=== PATIENT | female | born 1970 | race Caucasian/White ===

== ENCOUNTER 2017-01-03 22:10 | Emergency (ER) | payer OTHER ==
[2017-01-03 22:20] VITALS: BP 139/79; PULSE 66; RESP 18; TEMP 98.7; O2SAT 99
--- NOTE | 2017-01-03 23:46 | ED PDOC ---
HPI: Chest Pain Time Seen by Provider: 01/03/17 23:12 Chief Complaint (Nursing): Back Pain Chief Complaint (Provider): Chest Pain History Per: Patient History/Exam Limitations: no limitations Onset/Duration Of Symptoms: Days (x2 days) Current Symptoms Are (Timing): Still Present Associated Symptoms: Dyspnea (Dyspnea on exertion) Additional Complaint(s): Ashlie Mcintyre, a 46 year old female, with a past medical history of pulmonary embolism presents to the the ED with intermittent substernal chest pain that radiates to her back. The patient states that she took excedrin earlier that offered some relief but the pain keeps recurring. She also notes some shortness of breath and and dyspnea on exertion. The patient reports that in 2002 she had a pulmonary embolism after having a tubal ligation and a , at this time she was on coumadin for 9 months and then was taken off. Denies cough, fever, leg swelling, recent immobilization or leg swelling. PMD: [facility] - Risk Factors PE Risk Factors: Pos: Previous PE Past Medical History Reviewed: Historical Data, Nursing Documentation, Vital Signs Vital Signs: Last Vital Signs Temp 98.7 F 01/03/17 22:16 Pulse 66 01/03/17 22:16 Resp 18 01/03/17 22:16 BP 139/79 01/03/17 22:16 Pulse Ox 99 01/04/17 06:11 - Medical History PMH: GERD, Pulmonary Embolism Denies: Chronic Kidney Disease - Surgical History Surgical History: Cholecystectomy, (x 3) Other surgeries: Tubal Ligation - Family History Family History: States: Diabetes, Hypertension - Social History Current smoker - smoking cessation education provided: No Ex-Smoker (has not smoked in the last 12 months): No Alcohol: Occasional Drugs: Denies - Home Medications Home Medications: Ambulatory Orders Medication Instructions Recorded oxyCODONE/Acetaminophen [Percocet 1 tab PO Q4 PRN #20 tab 10/10/14 5/325 mg Tab] Dicyclomine [Bentyl] 20 mg PO Q6 PRN #12 tab 05/23/15 Ondansetron HCl [Zofran] 8 mg PO Q8 PRN #10 tab 05/23/15 Ofloxacin Ophth 0.3% [Ocuflox 1 drop RIGHTEYE Q6H #1 bottle 06/28/15 Ophth 0.3%] Promethazine DM 10 ml PO Q8H PRN #120 ml 11/08/15 [Dextromethorphan/Promethazine 15 MG/5 Ml-6.25] Cyclobenzaprine [Cyclobenzaprine 10 mg PO BID #15 tab 01/04/17 HCl] - Allergies Allergies/Adverse Reactions: Allergies Allergy/AdvReac Type Severity Reaction Status Date / Time No Known Allergies Allergy Verified 07/21/14 11:40 Review of Systems Constitutional: Negative for: Fever Cardiovascular: Positive for: Chest Pain, Other (Dyspnea on exertion) Respiratory: Positive for: Shortness of Breath. Negative for: Cough Musculoskeletal: Positive for: Other (Denies leg swelling) Physical Exam - Reviewed Nursing Documentation Reviewed: Yes Vital Signs Reviewed: Yes - Physical Exam Appears: Positive for: Non-toxic. Negative for: No Acute Distress (Mild painful distress) Skin: Positive for: Normal Color, Warm, Dry Eye Exam: Positive for: Normal appearance, EOMI, PERRL ENT: Positive for: Normal ENT Inspection Neck: Positive for: Normal, Painless ROM, Supple Cardiovascular/Chest: Positive for: Regular Rate, Rhythm, Chest Non Tender. Negative for: Tachycardia Respiratory: Positive for: Normal Breath Sounds. Negative for: Wheezing, Respiratory Distress Gastrointestinal/Abdominal: Positive for: Normal Exam, Bowel Sounds, Soft. Negative for: Tenderness, Guarding, Rebound Back: Positive for: Normal Inspection Extremity: Positive for: Normal ROM. Negative for: Tenderness, Pedal Edema, Deformity, Swelling Neurologic/Psych: Positive for: Alert, Oriented, Gait - Laboratory Results Result Diagrams: 01/03/17 23:45 01/03/17 23:45 - ECG O2 Sat by Pulse Oximetry: 99 (RA) Pulse Ox Interpretation: Normal Medical Decision Making Medical Decision Makin Initial Impression: 46 year old female presenting with substernal chest pain and shortness of breath Differential: Pulmonary Embolism vs Costochondritis vs Pnuemonia vs Plueral Effusion vs Anxiety Initial Plan: * Type and Screen * CT Angio Chest PE Protocol * EKG * B-type Natriuretic * Comp Metabolic Panel * Magnesium * Phosphorous * Thyroid Stimulant * Troponin * Upreg * Udip * CBC * Partial Thromboplastin * Prothrombin time * CXR * Reevaluation Scribe Attestation Documented by Belgica Amor acting as a scribe for Marta Vazquez MD. Provider Attestation All medical record entries made by the Scribe were at my direction and personally dictated by me. I have reviewed the chart and agree that the record accurately reflects my personal performance of the history, physical exam, medical decision making, and the department course for this patient. I have also personally directed, reviewed, and agree with the discharge instructions and disposition. Disposition - Clinical Impression Clinical Impression: Back pain - Disposition Disposition: Transfer of Care Disposition Time: 00:00 Condition: STABLE Prescriptions: Cyclobenzaprine [Cyclobenzaprine HCl] 10 mg PO BID #15 tab Patient Signed Over To: Elie Ruth Handoff Comments: Pending ER workup, reassessment and final ER disposition
[2017-01-04 00:27] LABS: BASO # 0.1 K/uL (0.0-0.2); BASO % 0.8 % (0.0-2.0); EOS # 0.2 K/uL (0.0-0.7); EOS % 2.5 % (0.0-4.0); HEMOGLOBIN 12.4 g/dL (12.0-16.0); LYMPH # 2.1 K/uL (1.0-4.3); LYMPH % 31.1 % (20.0-40.0); MEAN CELL VOLUME 85.2 fl (81.0-99.0); MEAN CORPUSCULAR HEMOGLOBIN 27.7 pg (27.0-31.0); MEAN CORPUSCULAR HGB CONC 32.5 g/dL (33.0-37.0); MEAN PLATELET VOLUME 8.9 fl (7.2-11.7); MONO # 0.4 K/uL (0.0-0.8); MONO % 5.9 % (0.0-10.0); NEUT # 4.1 K/uL (1.8-7.0); NEUT % 59.7 % (50.0-75.0); RBC 4.49 Mil/uL (3.80-5.20); RED CELL DISTRIBUTION WIDTH 13.8 % (11.5-14.5); WHITE BLOOD COUNT 6.9 K/uL (4.8-10.8)
[2017-01-04 00:37] LABS: ALB/GLOB RATIO 1.4 (1.0-2.1); ALBUMIN 4.5 g/dL (3.5-5.0); ALT/SGPT 36 U/L (9-52); AST/SGOT 26 U/L (14-36); BLOOD UREA NITROGEN 13 mg/dl (7-17); CALCIUM 9.5 mg/dL (8.4-10.2); GFR AFRICAN-AMERICAN > 60; GFR NON-AFRICAN AMERICAN > 60; MAGNESIUM 2.1 MG/DL (1.6-2.3)
[2017-01-04 00:44] LABS: PROTHROMBIN TIME 11.4 Seconds (9.8-13.1)
[2017-01-04 00:46] LABS: B-TYPE NATRIURETIC PEPTIDE 16.1 pg/ml (0-450)
[2017-01-04] MEDS ORDERED: Iohexol 300 100 ML IJ ONE (01:14)
[2017-01-04] MEDS ORDERED: Sodium Chloride 0.9% 50 ML IV ONE (01:14)
--- NOTE | 2017-01-04 03:18 | ED PDOC ---
- Laboratory Results Result Diagrams: 01/03/17 23:45 01/03/17 23:45 - ECG O2 Sat by Pulse Oximetry: 99 (RA) Pulse Ox Interpretation: Normal Medical Decision Making Medical Decision Making: Patient signed out to provider from Dr. Vazquez at [address] report. 01:49 CT Angiography Chest With Intravenous Contrast IMPRESSION: No pulmonary embolism. The lungs are clear. Pt. informed of results, feeling better. Return precautions given, advised to followup with PMD in 1-2 days. Scribe Attestation Documented by Belgica Amor acting as a scribe for Elie Ruth MD. Provider Attestation All medical record entries made by the Scribe were at my direction and personally dictated by me. I have reviewed the chart and agree that the record accurately reflects my personal performance of the history, physical exam, medical decision making, and the department course for this patient. I have also personally directed, reviewed, and agree with the discharge instructions and disposition. Disposition - Clinical Impression Clinical Impression: Back pain - POA Present On Arrival: None - Disposition Referrals: [facility] [Outside] Disposition: Routine/Home Disposition Time: 03:00 Condition: STABLE Prescriptions: Cyclobenzaprine [Cyclobenzaprine HCl] 10 mg PO BID #15 tab Instructions: Back Pain (ED)
--- NOTE | 2017-01-04 07:27 | CARD ---
APPROVED REPORT EKG Measurement Heart [id number] <Conclusion> Normal sinus rhythm with sinus arrhythmia Normal ECG
--- NOTE | 2017-01-04 08:15 | CT ---
PROCEDURE: CT Chest with contrast (Pulmonary Angiogram) HISTORY: chest pain h/o PE COMPARISON: None available. TECHNIQUE: Axial computed tomography images were obtained of the chest in the pulmonary arterial phase of enhancement. Coronal and sagittal reformatted images were created and reviewed. Maximum intensity projection (MIP) reconstructed images in the following planes: Axial projection only Intravenous contrast dose: 95 cc Omnipaque 300. Mean Hounsfield unit values in the main pulmonary artery: 404.26 Radiation dose: Total exam DLP = 423.03 mGy-cm. This CT exam was performed using one or more of the following dose reduction techniques: Automated exposure control, adjustment of the mA and/or kV according to patient size, and/or use of iterative reconstruction technique. FINDINGS: PULMONARY ARTERIES: Unremarkable. No pulmonary embolism. AORTA: No acute findings. No thoracic aortic aneurysm. LUNGS: Unremarkable. No nodule, mass or pulmonary consolidation. PLEURAL SPACES: Unremarkable. No effusion or pneuomothorax. HEART: Unremarkable. No cardiomegaly. No significant pericardial effusion. LYMPH NODES: No lymphadenopathy. BONES, CHEST WALL: Unremarkable. No fracture or destructive lesion OTHER FINDINGS: Unremarkable. IMPRESSION: Unremarkable CT pulmonary angiogram. No pulmonary embolus. Concordant results (preliminary interpretation) provided by [email or web address]. Procedure Completed: :23 Preliminary ([facility]) Report: Dictated and Authenticated: 01:49 Final Interpretation: 08:13
--- NOTE | 2017-01-04 12:28 | RAD ---
HISTORY: chest pain COMPARISON: 12/03/2011 TECHNIQUE: Chest PA and lateral FINDINGS: LUNGS: No active pulmonary disease. PLEURA: No significant pleural effusion identified. No pneumothorax apparent. CARDIOVASCULAR: Normal. OSSEOUS STRUCTURES: No significant abnormalities. VISUALIZED UPPER ABDOMEN: Normal. OTHER FINDINGS: None. IMPRESSION: No active disease. No significant interval change compared to the prior examination(s).
== END 2017-01-04 04:08 | disposition home or self-care (01) ==
LOC: H.ER 22:10
DX: M54.9 Dorsalgia, unspecified (principal); K21.9 Gastro-esophageal reflux disease without esophagitis; Z86.711 Personal history of pulmonary embolism

== ENCOUNTER 2018-06-23 22:39 | Emergency (ER) | payer SELFPAY ==
[2018-06-23 22:47] VITALS: O2SAT 99
--- NOTE | 2018-06-23 23:25 | ED PDOC ---
HPI: Chest Pain <Mandie Hernandez - Last Filed: 06/24/18 03:06> Additional Complaint(s): 48 yo female with PMHx pulmonary embolism 15 years ago (tx with AC) presents with substernal chest pain (10/10 at times) that radiates to back x 4 days, progressively getting worse, associated with shortness of breath with deep breathing and walking. Patient reports shortness of breath is better with leaning forward. Patient reports non productive cough started today. Patient took BC power (aspirin x 2) today. Denies any nausea, vomiting, palpitation, headache, focal weakness, fever or chills. Denies any family hx CAD. Denies any recent plane trip. Patient is a non-smoker. PMD: NONE <Sultan Gibson - Last Filed: 06/24/18 03:42> Time Seen by Provider: 06/23/18 23:09 Chief Complaint (Nursing): Chest Pain Past Medical History Vital Signs: Last Vital Signs Temp 98 F 06/24/18 02:56 Pulse 62 06/24/18 02:56 Resp 18 06/24/18 02:56 BP 118/57 L 06/24/18 02:56 Pulse Ox 99 06/24/18 03:06 <Mandie Hernandez - Last Filed: 06/24/18 03:06> Vital Signs: Last Vital Signs Temp 97.7 F 06/23/18 22:42 Pulse 81 06/23/18 22:42 Resp 20 06/23/18 22:42 BP 111/76 06/23/18 22:42 Pulse Ox 99 06/23/18 22:42 - Medical History PMH: GERD, Pulmonary Embolism Denies: Chronic Kidney Disease - Surgical History Surgical History: Cholecystectomy, (x 3) - Family History Family History: States: Unknown Family Hx, Diabetes, Hypertension <Sultan Gibson - Last Filed: 06/24/18 03:42> - Home Medications Home Medications: Ambulatory Orders Medication Instructions Recorded RX: oxyCODONE/Acetaminophen 1 tab PO Q4 PRN #20 tab 10/10/14 [Percocet 5/325 mg Tab] Dicyclomine [Bentyl] 20 mg PO Q6 PRN #12 tab 05/23/15 Ondansetron HCl [Zofran] 8 mg PO Q8 PRN #10 tab 05/23/15 Ofloxacin Ophth 0.3% [Ocuflox 1 drop RIGHTEYE Q6H #1 bottle 06/28/15 Ophth 0.3%] Promethazine DM 10 ml PO Q8H PRN #120 ml 11/08/15 [Dextromethorphan/Promethazine 15 MG/5 Ml-6.25] Cyclobenzaprine [Cyclobenzaprine 10 mg PO BID #15 tab 01/04/17 HCl] - Allergies Allergies/Adverse Reactions: Allergies Allergy/AdvReac Type Severity Reaction Status Date / Time No Known Allergies Allergy Verified 06/23/18 22:42 Review of Systems ROS Statement: Except As Marked, All Systems Reviewed And Found Negative Constitutional: Negative for: Fever, Chills Cardiovascular: Positive for: Chest Pain. Negative for: Palpitations Respiratory: Positive for: Cough, Shortness of Breath. Negative for: Hemoptysis, Wheezing Gastrointestinal: Negative for: Nausea, Vomiting Genitourinary Female: Negative for: Dysuria Skin: Negative for: Rash Neurological: Negative for: Weakness, Numbness, Confusion, Altered Mental Status <Sultan Gibson - Last Filed: 06/24/18 03:42> Physical Exam - Physical Exam Appears: Positive for: Non-toxic, No Acute Distress Head Exam: Positive for: ATRAUMATIC, NORMOCEPHALIC Skin: Negative for: Diaphoresis Eye Exam: Positive for: Normal appearance Neck: Positive for: Normal Cardiovascular/Chest: Positive for: Regular Rate, Rhythm. Negative for: Murmur Respiratory: Positive for: Normal Breath Sounds. Negative for: Crackles, Rales, Rhonchi, Wheezing, Respiratory Distress Gastrointestinal/Abdominal: Positive for: Soft. Negative for: Tenderness, Guarding, Rebound Extremity: Positive for: Capillary Refill. Negative for: Calf Tenderness, Swelling Neurologic/Psych: Positive for: Alert, Oriented <Sultan Gibson - Last Filed: 06/24/18 03:42> - Laboratory Results Result Diagrams: 06/23/18 23:43 06/23/18 23:43 <Mandie Hernandez - Last Filed: 06/24/18 03:06> - Laboratory Results Result Diagrams: 06/23/18 23:43 06/23/18 23:43 - ECG O2 Sat by Pulse Oximetry: 99 - Progress ED Course And Treament: Time 23:10 48 yo female PMHx PE treated with AC presents w/ complaints of chest pain and dyspnea x 4 days. PLAN: EKG CXR CT CHEST (PE PROTOCOL) Troponin I CMP CBC MG PHOS PRO BNP PT/INR INFLUENZA Re-evaluate Time: 2:40 Labs reviewed: all labs unremarkable including troponin I and proBNP. EKG NSR, no ST/T wave changes (pending official read) CXR shows active no cardiopulmonary disease (pending official read) CTA is unremarkable, no evidence of PE. reevaluated at 2:40 am, patient reports her chest pain resolved. Patient not in acute distress and repeat vitals stable Patient is medically stable to discharge home with advised to f/u with a airplane first officer within 1 week and [facility] clinic for PMD Advised to return to ER if chest pain or shortness of breath returns Plan d/w Dr. Hernandez Re-evaluation Time: 02:40 Condition: Re-examined, Improved <Sultan Gibson - Last Filed: 06/24/18 03:42> Medical Decision Making Medical Decision Making: Patient seen and evaluated at bedside with resident, including HPI and exam. Agree with assessment, plan and discharge. <Mandie Hernandez - Last Filed: 06/24/18 03:06> Disposition <Mandie Hernandez - Last Filed: 06/24/18 03:06> <Sultan Gibson - Last Filed: 06/24/18 03:42> - Clinical Impression Clinical Impression: Acute chest pain - Disposition Referrals: [facility] [Outside] Additional Instructions: Contact the [facility] clinic on the referral to schedule an appointment for follow up. Return to the emergency department if symptoms return or you develop chest pain, difficulty breathing, or other new symptoms. Instructions: Chest Pain (DC), Heart Disease in Women (DC) Forms: [employer] (Nauruan) Print Language: BAHAMIAN
[2018-06-24 00:32] LABS: BASO % 0.5 % (0.0-2.0); EOS # 0.2 K/uL (0.0-0.7); EOS % 3.4 % (0.0-4.0); HEMOGLOBIN 12.2 g/dL (12.0-16.0); LYMPH % 34.4 % (20.0-40.0); MEAN CORPUSCULAR HGB CONC 32.9 g/dL (33.0-37.0); MEAN PLATELET VOLUME 8.9 fl (7.2-11.7); MONO # 0.3 K/uL (0.0-0.8); MONO % 5.5 % (0.0-10.0); NEUT # 3.2 K/uL (1.8-7.0); NEUT % 56.2 % (50.0-75.0); NRBC % 0.1 % (0.0-0.0); RBC 4.37 Mil/uL (3.80-5.20); WHITE BLOOD COUNT 5.7 K/uL (4.8-10.8)
[2018-06-24] MEDS ORDERED: Sodium Chloride 0.9% 50 ML IV ONE (00:35)
[2018-06-24] MEDS ORDERED: Iodixanol 320 MG/ML 100 ML BOTTLE IV ONE (00:35)
[2018-06-24 00:36] LABS: PROTHROMBIN TIME 11.4 Seconds (9.8-13.1)
[2018-06-24 00:39] LABS: PARTIAL THROMBOPLASTIN TIME 36.5 Seconds (25.6-37.1)
[2018-06-24 00:48] LABS: ALB/GLOB RATIO 1.3 (1.0-2.1); ALBUMIN 4.2 g/dL (3.5-5.0); ALT/SGPT 23 U/L (9-52); AST/SGOT 22 U/L (14-36); BLOOD UREA NITROGEN 11 mg/dl (7-17); CALCIUM 9.3 mg/dL (8.4-10.2); GFR NON-AFRICAN AMERICAN > 60
[2018-06-24 01:23] LABS: B-TYPE NATRIURETIC PEPTIDE < 11.1 pg/ml (0-450)
[2018-06-24 02:57] VITALS: BP 118/57; PULSE 62; RESP 18; TEMP 98
--- NOTE | 2018-06-24 10:30 | CT ---
Date of service: 06/24/2018 PROCEDURE: CT Chest with contrast (Pulmonary Angiogram) HISTORY: Chest pain radiating to back. Previous PE COMPARISON: Comparison made with prior CTA chest 01/04/2017. TECHNIQUE: Axial computed tomography images were obtained of the chest in the pulmonary arterial phase of enhancement. Coronal and sagittal reformatted images were created and reviewed. Intravenous contrast dose: 95 cc Visipaque 320 contrast material. Radiation dose: Total exam DLP = 302.23 mGy-cm. This CT exam was performed using one or more of the following dose reduction techniques: Automated exposure control, adjustment of the mA and/or kV according to patient size, and/or use of iterative reconstruction technique. FINDINGS: PULMONARY ARTERIES: No pulmonary embolism. Incidental note made of some reflux of contrast material into the hepatic IVC and hepatic veins. AORTA: No acute findings. No thoracic aortic aneurysm. No aortic atherosclerotic calcification or mural plaque present. LUNGS: Mild passive/dependent type atelectasis seen both posterior lower lung aguilera.. PLEURAL SPACES: Unremarkable. No effusion or pneumothorax. HEART: Unremarkable. No cardiomegaly. No significant pericardial effusion. LYMPH NODES: No significant hilar or mediastinal lymphadenopathy. Trachea is midline and patent with no large central endoluminal lesions. Small hiatal hernia. BONES, CHEST WALL: Mild multilevel degenerative spondylosis of the thoracic spine. OTHER FINDINGS: Cholecystectomy. IMPRESSION: No evidence of acute central pulmonary embolus.. Note is made of slight reflux of contrast material into the hepatic IVC and hepatic veins Minor atelectasis both posterior lower lung aguilera.
--- NOTE | 2018-06-24 13:55 | RAD ---
Date of service: 06/23/2018 HISTORY: Possible admission COMPARISON: Comparison CTA chest dated 06/24/2018 at 00:54 hours.. FINDINGS: LUNGS: Poor inspiration with low lung volumes, crowded bronchovascular markings and minimal bibasilar atelectasis. PLEURA: No significant pleural effusion identified, no pneumothorax apparent. CARDIOVASCULAR: No aortic atherosclerotic calcification present. Normal cardiac size. No pulmonary vascular congestion. OSSEOUS STRUCTURES: No significant abnormalities. VISUALIZED UPPER ABDOMEN: Normal. OTHER FINDINGS: None. IMPRESSION: Poor inspiration with low lung volumes, crowded bronchovascular markings with minimal bibasilar atelectasis
== END 2018-06-24 03:10 | disposition home or self-care (01) ==
LOC: H.ER 22:39
DX: R07.89 Other chest pain (principal)
CPT/HCPCS: 71045; 71275; 80053; 81025; 83735; 83880; 84100; 84484; 85025; 85610; 85730; 87804; 99285; Q9967